=== PATIENT | male | born 1990 | race Caucasian/White ===

== ENCOUNTER 2021-04-04 16:13 | Emergency (ER) | payer OTHER, SELFPAY ==
[2021-04-04 16:21] VITALS: BP 124/87; PULSE 90; RESP 16; TEMP 36.5; O2SAT 99
--- NOTE | 2021-04-04 16:37 | ED.GENADUL_ITS ---
Discharge Plan Disposition Patient Disposition: HOME Condition: Stable Discharge Details Clinical Impression: Laceration of left thumb Primary Care Provider: None,None ED Provider: Cindy Parker Home Meds and New Rx's Prescriptions: No Action No Known Home Meds RF: 0 Discharge Instructions Instructions: Laceration (ED) Additional Instructions: Keep wound clean and dry. Cover wound with bandage if risk of contamination. Otherwise you can keep the wound open to air if resting at home to allow edges to dry and heal. You can you can apply topical antibiotic ointment if you notice any redness, pain or swelling, otherwise keep the area dry and clean. Return to the emergency department in 7 days for suture removal. Discharge Data Discharge Date/Time-TO BE ENTERED AT DEPARTURE: 04/04/21 17:54 Discharge Physician: Cindy Parker Medical Decision Making 30-year-old male presents with left thumb laceration sustained while cutting asparagus with a knife at home prior to arrival. He was given Boostrix here. Finger was irrigated with saline and Betadine. There is a 1 cm flap laceration on the distal tip of thumb. Bleeding eventually controlled. Neurovascular intact. Wound closed with 3 nylon 5-0 sutures. As this is a clean wound, and patient has no other risk factors, do not feel indication for oral antibiotics. Bacitracin and tube gauze applied. Patient advised on the importance of proper wound care and to use topical antibiotic ointment if needed. Advised to return here in 7 days for suture removal. Usual and customary return precautions given prior to discharge. HPI General Mode of arrival: ambulatory . Date/Time Provider Initiated Documentation: 04/04/21 16:30 . Limitations to Documentation: no limitations . Information obtained by: patient . HPI Narrative: Patient is a 30-year-old male presents with left thumb laceration sustained while cutting asparagus at home. He is unsure of his tetanus status. He does not a primary care doctor. Related Data Home Medications Medication Instructions Recorded Confirmed Unknown [No Known Home Meds] 01/11/18 04/04/21 Allergies Allergy/AdvReac Type Severity Reaction Status Date / Time tomato Allergy Severe Anaphylaxsi Unverified 04/04/21 16:24 s General Stated Complaint: Laceration SWATHI: 4 Review of Systems All systems reviewed & are unremarkable except as noted in HPI and below [facility] Medical History (Updated 04/04/21 @ 17:44 by Cindy Parker DO) No significant past medical history Surgical History (Updated 04/04/21 @ 17:29 by Cindy Parker DO) History of tooth extraction Social History Smoking/Tobacco Use Status: Former Tobacco Use Smoking risk assessment performed?: Yes Drug use: Never Do you feel safe in your relationship?: Yes Exam Const General: cooperative, healthy appearing and no acute distress HENMT Head: normal to inspection Mouth: oral mucosae normal Eyes General: appearance normal, both eyes and all related structures Neck Neck: normal visual inspection Resp Effort & Inspection: normal respiratory effort and able to speak in complete sentences Cardio Rate: regular rate Skin General skin exam: no rashes or lesions noted Neuro General: patient alert, patient awake and patient oriented x3 Motor: muscle tone normal throughout Extrem Hand/finger images: 1. 1 cm C-shaped flap laceration noted to the distal tip of the left thumb. Bleeding initially oozing with small laceration noted just below end of nail. Nail appears intact and attached to base. Other: Normal capillary refill. Motor/sensory grossly intact. Psych Appearance: grossly normal Affect: normal affect Course Vital Signs Vital signs: Vital Signs Temperature 97.7 F 04/04/21 16:21 Pulse 90 04/04/21 16:21 Respiratory Rate 16 04/04/21 16:21 Blood Pressure 124/87 04/04/21 16:21 Pulse Oximetry 99 04/04/21 16:21 Temperature 97.7 F 04/04/21 16:21 Temperature Source Skin 04/04/21 16:21 Pulse 90 04/04/21 16:21 Respiratory Rate 16 04/04/21 16:21 Respiratory Effort Non-Labored 04/04/21 16:21 Blood Pressure 124/87 04/04/21 16:21 Blood Pressure Position Sitting 04/04/21 16:21 Pulse Oximetry 99 04/04/21 16:21 Oxygen Delivery Method Room Air 04/04/21 16:21 Oxygen Flow Rate 0 04/04/21 16:21 Pain Level 6 04/04/21 16:24 Procedures Laceration Laceration 1: Site: hand (thumb) Side (If applicable): left Size (cm): 1 Description: flap Depth: simple, single layer Local Anesthetic: Lidocaine 1% Amount of anesthesia used (mL): 5 Pre-repair: wound explored, irrigated extensively and deep structures intact Skin layer closed with: nylon Size (cm): 5-0 Number of sutures: 3 Technique: simple, interrupted
[2021-04-04] MEDS: Phenylephrine SPRAY 1% 15 ML BTL (17:11)
[2021-04-04] MEDS: Gelatin SPONGE 12-7 MM PKT 1 EACH TP (17:11)
== END 2021-04-04 17:54 | disposition home or self-care (01) ==
PROVIDERS: Emergency Provider Physician Assistant
DX: S61.112A Laceration without foreign body of left thumb with damage to nail, initial encounter (principal); W26.0XXA Contact with knife, initial encounter; Y93.G1 Activity, food preparation and clean up
CPT/HCPCS: 12001; 90471

== ENCOUNTER 2021-05-07 19:00 | Outpatient (REF) | payer OTHER, SELFPAY ==
[2021-05-07 20:02] LABS: HCT 42.4 % (40.0-50.0); HGB 14.2 g/dL (13.5-17.5); MCH 28.3 pg (27.0-33.0); MCHC 33.5 % (32.0-36.0); MCV 84.6 fL (80-95); MPV 11.9 fL (8.0-11.0); Platelet Count 239 10^3/uL (130-400); RBC 5.01 10^6/uL (4.36-5.78); RDW 12.3 % (11.8-14.1); RDW-SD 37.6 fL; WBC 10.62 10^3/uL (4.4-10.8)
[2021-05-07 20:23] LABS: ALT 35 U/L (16-63); AST 17 U/L (15-37); Albumin 4.1 g/dL (3.4-5.0); Alkaline Phosphatase 97 U/L (46-116); Anion Gap 9.5 mmol/L (3-11); BUN 18 mg/dL (7-18); Bilirubin, Total 0.7 mg/dL (0.2-1.0); CO2 27.5 mmol/L (21.0-32.0); CREATININE 1.1 mg/dL (0.70-1.30); Calcium 8.9 mg/dL (8.5-10.1); Calculated LDL 44 mg/dL (<100); Chloride 102 mmol/L (98-107); Cholesterol 127 mg/dL (<200); Glucose 99 mg/dL (74-106); HDL Cholesterol 31 mg/dL (40-60); Potassium 4.5 mmol/L (3.5-5.1); Sodium 139 mmol/L (136-145); Total Protein 7.4 g/dL (6.4-8.2); Triglyceride 264 mg/dL (<150)
== END 2021-05-07 19:01 | disposition home or self-care (01) ==
LOC: NCHCN 19:00
PROVIDERS: Visit Provider Nurse Practitioner Family
DX: Z00.00 Encounter for general adult medical examination without abnormal findings (principal); R03.0 Elevated blood-pressure reading, without diagnosis of hypertension; F17.220 Nicotine dependence, chewing tobacco, uncomplicated; Z13.220 Encounter for screening for lipoid disorders
CPT/HCPCS: 80053; 80061; 85027

== ENCOUNTER 2021-09-02 04:26 | Emergency (ER) | payer SELFPAY ==
[2021-09-02 04:30] VITALS: BP 129/73; PULSE 106; RESP 18; O2SAT 96
[2021-09-02 04:54] LABS: Abs Immature Grans 0.05 10^3/uL (0.0-0.06); Absolute Basophil Count 0.09 10^3/uL (0.0-0.2); Absolute Eosinophil Count 0.04 10^3/uL (0.0-0.7); Absolute Lymphocyte Count 4.46 10^3/uL (1.2-3.4); Absolute Monocyte Count 1.06 10^3/uL (0.1-0.8); Absolute Neutrophil Count 9.23 10^3/uL (1.2-6.7); Basophils % 0.6; Eosinophils % 0.3; HGB 15.5 g/dL (13.5-17.5); Immature Grans % 0.3; Lymphocytes % 29.9; MCH 28.1 pg (27.0-33.0); MCHC 34.4 % (32.0-36.0); MCV 81.7 fL (80-95); MPV 11.5 fL (8.0-11.0); Monocytes % 7.1; Neutrophils % 61.8; Nucleated RBC 0 %; Platelet Count 294 10^3/uL (130-400); RBC 5.51 10^6/uL (4.36-5.78); RDW 12.2 % (11.8-14.1); RDW-SD 36.5 fL; WBC 14.93 10^3/uL (4.4-10.8)
--- NOTE | 2021-09-02 04:59 | W.ED.GENAD ---
Discharge Plan Disposition Patient Disposition: HOME Condition: Improving Discharge Details Clinical Impression: Major depression, Alcohol intoxication Primary Care Provider: Unknown,Unknown ED Provider: Cindy Parker Home Meds and New Rx's Prescriptions: No Action No Known Home Meds RF: 0 Discharge Instructions Instructions: Depression (ED), Alcohol Intoxication (ED) Additional Instructions: You have agreed to of plan of safety and a plan of care in the outpatient setting. You will receive a phone call from the production staff worker tomorrow regarding timing of your outpatient follow-up. You were evaluated by the on-call [facility] psychiatrist today and were observed in the ER over approximately 15 hours. Return to ER for any acute change to mood or any other acute concerns. Please avoid further use of alcohol. Discharge Data Discharge Date/Time-TO BE ENTERED AT DEPARTURE: 09/02/21 21:00 Discharge Physician: Cindy Parker Medical Decision Making <Jose David Ochoa MD - Last Filed: 09/02/21 05:54> Patient brought in for emergency evaluation. He is angry but cooperative. He did consent to blood draw. He does admit to being intoxicated. He denies SI or HI. He has no recollection of the event that led to his being brought here. Patient insisting that he wants to leave. Alcohol level is 180. I do believe that he is not suicidal or homicidal. However, I also believe he lacks capacity to make rational decisions at this point in time due to his intoxication. I have convinced him to remain here voluntarily to be reevaluated by [facility] when sober in the morning. I have held off filing emergency certification papers due to his denial of SI/HI, alcohol intoxication, no recollection of his actions for tonight due to his intoxication with the assumption that he will be deemed safe and not a threat once sober. Lab Data Lab results reviewed: Yes I reviewed the patient's lab results. <Gilmar Ramírez MD - Last Filed: 09/02/21 19:30> Patient signout received from Dr. Ochoa on the patient. As of 11 AM he slept through the patternmaker apprentice wood hours, awoke and now is clinically sober, interactive with staff, stating I got really drunk last night and states he does not remember threatening suicide. He states he has no thoughts of harming herself or or others at this time. Patient seen by [facility] via telemedicine. Has history of previous suicide attempts, and report of last night suicidal gesture occurred in front of his 8yo child. This was placing a loaded gun in his mouth and threatening to pull the trigger, requiring bystanders to restrain him for 1 hour and by report had to wrestle the gun away from the patient. His reported to [facility] that the patient had threatened to kill himself by driving off a bridge and has had repeated reports of depression and thoughts of suicide. Given the ongoing threats of self-harm I do feel the patient is a danger to himself. I have requested a second certification by psychiatry. The patient was interviewed by Dr. Hernandez, who also obtained collateral history from both the production staff worker as well as the patient's . She feel he does not meet criteria for emergency evaluation, and may be discharged to home with a plan for outpatient follow-up to be arranged by [facility] services. The consultation is being finalized, the patient will be signed out to Dr. Parker pending receipt of final paperwork faxed from the [facility] psychiatry team. Lab Data Lab results reviewed: Yes I reviewed the patient's lab results. Labs: Laboratory Tests Range/Units 09/02/21 09/02/21 09/02/21 04:50 04:50 04:50 WBC (4.4-10.8) 10^3/uL 14.93 H RBC (4.36-5.78) 10^6/uL 5.51 Hgb (13.5-17.5) g/dL 15.5 Hct (40.0-50.0) % 45.0 MCV (80-95) fL 81.7 MCH (27.0-33.0) pg 28.1 MCHC (32.0-36.0) % 34.4 RDW (11.8-14.1) % 12.2 Plt Count (130-400) 10^3/uL 294 MPV (8.0-11.0) fL 11.5 H Immature Gran % 0.3 Neutrophils % 61.8 Lymphocytes % 29.9 Monocytes % 7.1 Eosinophils % 0.3 Basophils % 0.6 Nucleated RBC % % 0 Absolute Neutrophils (1.2-6.7) 10^3/uL 9.23 H Absolute Lymphocytes (1.2-3.4) 10^3/uL 4.46 H Absolute Monocytes (0.1-0.8) 10^3/uL 1.06 H Absolute Eosinophils (0.0-0.7) 10^3/uL 0.04 Absolute Basophils (0.0-0.2) 10^3/uL 0.09 Sodium (136-145) mmol/L 140 Potassium (3.5-5.1) mmol/L 3.9 Chloride (98-107) mmol/L 102 Carbon Dioxide (21.0-32.0) mmol/L 22.7 Anion Gap (3-11) mmol/L 15.3 H BUN (7-18) mg/dL 13 Creatinine (0.70-1.30) mg/dL 1.3 Estimated GFR/1.73 m2 (mL/min/1.73m2) >= 60.00 Glucose (74-106) mg/dL 110 H Calcium (8.5-10.1) mg/dL 8.9 Total Bilirubin (0.2-1.0) mg/dL 0.7 AST (15-37) U/L 40 H ALT (16-63) U/L 59 Alkaline Phosphatase (46-116) U/L 108 Total Protein (6.4-8.2) g/dL 8.5 H Albumin (3.4-5.0) g/dL 4.6 Salicylates (<2.8) mg/dL < 2.8 Acetaminophen (10-30) ug/mL < 2 Ethyl Alcohol (<3) mg/dL 181.6 H COVID-19 Source SARS-CoV-2 (PCR) (Negative) Range/Units 09/02/21 13:40 WBC (4.4-10.8) 10^3/uL RBC (4.36-5.78) 10^6/uL Hgb (13.5-17.5) g/dL Hct (40.0-50.0) % MCV (80-95) fL MCH (27.0-33.0) pg MCHC (32.0-36.0) % RDW (11.8-14.1) % Plt Count (130-400) 10^3/uL MPV (8.0-11.0) fL Immature Gran % Neutrophils % Lymphocytes % Monocytes % Eosinophils % Basophils % Nucleated RBC % % Absolute Neutrophils (1.2-6.7) 10^3/uL Absolute Lymphocytes (1.2-3.4) 10^3/uL Absolute Monocytes (0.1-0.8) 10^3/uL Absolute Eosinophils (0.0-0.7) 10^3/uL Absolute Basophils (0.0-0.2) 10^3/uL Sodium (136-145) mmol/L Potassium (3.5-5.1) mmol/L Chloride (98-107) mmol/L Carbon Dioxide (21.0-32.0) mmol/L Anion Gap (3-11) mmol/L BUN (7-18) mg/dL Creatinine (0.70-1.30) mg/dL Estimated GFR/1.73 m2 (mL/min/1.73m2) Glucose (74-106) mg/dL Calcium (8.5-10.1) mg/dL Total Bilirubin (0.2-1.0) mg/dL AST (15-37) U/L ALT (16-63) U/L Alkaline Phosphatase (46-116) U/L Total Protein (6.4-8.2) g/dL Albumin (3.4-5.0) g/dL Salicylates (<2.8) mg/dL Acetaminophen (10-30) ug/mL Ethyl Alcohol (<3) mg/dL COVID-19 Source Nasal/Nares SARS-CoV-2 (PCR) (Negative) Negative <Cindy Parker DO - Last Filed: 09/03/21 01:50> 2000 --please see previous provider's notes for initial presentation, exam, course and plan. [facility] psychiatrist Dr. eHrnandez evaluated patient for second certificate through telemedicine visit and cleared him for discharge to home. Case endorsed pending receipt of her final paperwork. 2030 -- Dr. Hernandez's note received through fax confirming plan for discharge. Her notes indicate that she spoke with patient's Kelly who has taken the guns out of the home and feels comfortable with plan for discharge to home. Safety plan formulated. Discussed with patient at bedside. He feels comfortable with plan for discharge home. Also discussed with patient's Kelly and she feels comfortable with plan for home. Kelly will metal pickling equipment operator patient. [facility] human services will follow up with patient tomorrow. Usual and customary return precautions given prior to discharge. Medical Records Medical records reviewed: Yes I reviewed the patient's medical records. HPI <Jose David Ochoa MD - Last Filed: 09/02/21 05:54> General Mode of arrival: ambulatory. Date/Time Provider Initiated Documentation: 09/02/21 04:32. Limitations to Documentation: no limitations. Information obtained by: patient, police and RN notes reviewed. HPI Narrative: Patient brought in by police for emergency evaluation per warrant issued by courts at request of [facility]. Per paper work patient had been drinking most of the evening. He placed a loaded shotgun in his mouth. Friends had to struggle with him to take a gun away. Guns were then removed from the residence by friends. called 911 and police stayed on scene at house until warrant issued by reservations and ticketing agent. Patient arrives here admitting to drinking this evening. Has no recollection of the event described. States he woke up to go to the bathroom and the police were there. Patient denies SI or HI currently. Denies any physical complaints. Is not a daily drinker but has been drinking tonight at the [employer] party they were hosting. Is angry and upset but is cooperative with us. Related Data Home Medications Medication Instructions Recorded Confirmed Unknown [No Known Home Meds] 06/05/21 09/02/21 Allergies Allergy/AdvReac Type Severity Reaction Status Date / Time tomato Allergy Severe Anaphylaxsi Unverified 04/04/21 16:24 s General SWATHI: 4 Review of Systems <Jose David Ochoa MD - Last Filed: 09/02/21 05:54> Narrative: As documented in HPI otherwise negative as below. Const: no fever, chills, weakness Resp: no cough, SOB, pleuritic pain CV: no CP, diaphoresis, edema, syncope GI: no abdominal pain, nausea, vomiting, diarrhea Neuro: no headache, numbness, focal weakness, confusion PFSH <Jose David Ochoa MD - Last Filed: 09/02/21 05:54> Medical History Elevated blood pressure reading in office without diagnosis of hypertension No significant past medical history Tobacco chew use Surgical History History of tooth extraction Social History Smoking/Tobacco Use Status: Current every day Tobacco Type: cigarettes Smoking risk assessment performed?: Yes Alcohol Intake: current Alcohol Intake frequency: a few times a month Drug use: Never Substance use type: does not use Do you feel safe at home: Yes Do you feel safe in your relationship?: Yes Exam <Jose David Ochoa MD - Last Filed: 09/02/21 05:54> Narrative Exam Narrative: Const: WDWN male in NAD. HEENT: NC/AT. Normal facial exam. Neck: Supple. Trachea midline. Lungs: Normal respiratory effort. Cor: RRR. Good radial pulses. Neuro: A+O x 3. Normal speech, mentation, gait. Cranial nerves II - XII grossly intact. No gross motor or sensory deficit. Ext: No C/C/E. Skin: Warm and dry without rash. Psych: Angry but cooperative, irritable. Denies SI or HI. Course <Jose David Ochoa MD - Last Filed: 09/02/21 05:54> Lab/Test Results Lab/Test Results: Laboratory Tests Range/Units 09/02/21 04:50 WBC (4.4-10.8) 10^3/uL 14.93 H RBC (4.36-5.78) 10^6/uL 5.51 Hgb (13.5-17.5) g/dL 15.5 Hct (40.0-50.0) % 45.0 MCV (80-95) fL 81.7 MCH (27.0-33.0) pg 28.1 MCHC (32.0-36.0) % 34.4 RDW (11.8-14.1) % 12.2 Plt Count (130-400) 10^3/uL 294 MPV (8.0-11.0) fL 11.5 H Immature Gran % 0.3 Neutrophils % 61.8 Lymphocytes % 29.9 Monocytes % 7.1 Eosinophils % 0.3 Basophils % 0.6 Nucleated RBC % % 0 Absolute Neutrophils (1.2-6.7) 10^3/uL 9.23 H Absolute Lymphocytes (1.2-3.4) 10^3/uL 4.46 H Absolute Monocytes (0.1-0.8) 10^3/uL 1.06 H Absolute Eosinophils (0.0-0.7) 10^3/uL 0.04 Absolute Basophils (0.0-0.2) 10^3/uL 0.09 Sign Out <Jose David Ochoa MD - Last Filed: 09/02/21 05:54> Sign Out Data: Sign Out Comment: pending sober mental health eval Last updated by Jose David Ochoa MD at 09/02/21 07:57 Sign Out Comment: Awaiting final psychiatry paperwork, anticipate DC Last updated by Gilmar Ramírez MD at 09/02/21 19:47
[2021-09-02 05:08] LABS: ALT 59 U/L (16-63); AST 40 U/L (15-37); Albumin 4.6 g/dL (3.4-5.0); Alkaline Phosphatase 108 U/L (46-116); Anion Gap 15.3 mmol/L (3-11); BUN 13 mg/dL (7-18); Bilirubin, Total 0.7 mg/dL (0.2-1.0); CO2 22.7 mmol/L (21.0-32.0); CREATININE 1.3 mg/dL (0.70-1.30); Calcium 8.9 mg/dL (8.5-10.1); Chloride 102 mmol/L (98-107); ETHANOL BLOOD 181.6 mg/dL (<3); Glucose 110 mg/dL (74-106); Potassium 3.9 mmol/L (3.5-5.1); Sodium 140 mmol/L (136-145); Total Protein 8.5 g/dL (6.4-8.2)
[2021-09-02 05:12] LABS: Acetaminophen < 2 ug/mL (10-30); Salicylate < 2.8 mg/dL (<2.8)
[2021-09-02] MEDS: Nicotine 21 MG/24 HR PATCH TD (11:15)
--- NOTE | 2021-09-02 12:25 | NUR.NOTE ---
Nursing Note: Spoke with Nicole from Mental Health, Patient is allowed to talk to his on the phone as long as he remains calm. If patient displays increased aggitation/anger patient will lose the privilege. is Kelly [phone]. Nicole will be calling back to speak with the patient to inform him that he will not be released today as this is not the first time he has held a gun to his head and threatened to kill himself.
[2021-09-02 13:42] LABS: Source Nasal/Nares
--- NOTE | 2021-09-02 14:15 | NUR.NOTE ---
Nursing Note: Faxed to [facility] the EE paperwork, 2nd cert, and warrant. Katty Wetzel P [phone] F [phone]
[2021-09-02 15:00] LABS: COVID-19 PCR Negative (Negative)
--- NOTE | 2021-09-02 17:00 | PDOC.CMSAFED ---
- If Service Date Differs Date of service: 09/02/21 Time of Service: 17:00 Care Management Safety Plan Status: Involuntary - Reason for Wait Reason for Wait: Inpatient Admission INVOLUNTARY FOR INPATIENT PSYCHIATRIC STABILIZATION. Jose Luis presented to the ED by police escort, after his reportedly told the police that he had been drinking alcohol and put a loaded gun in his mouth in front of their 8yo child. Per report, this is not the first time he has done this. A warrant was issued and he was brought in, where he was observed until he was no longer intoxicated. Per report, he has been angry, but cooperative. His has been identified as a support. A second certification will happen this evening to determine if he will continue to be held for inpatient psychiatric stabilization. He does not report SI/HI at this time. His reports several past threats of suicide and his struggle with depression. Safety plan has been established to meet the needs of the patient, and consideration of the care team, to adhere to patient goals, identify restrictions based on behavioral status, address nutrition, and determine allowed personal belongings, tools for hygiene and personal care. Determine level of activity including ambulation, level of supervision, visitors, and determine privileges based on behaviors and level of engagement by pt. SAFETY PLAN: 1. Will remain on SI/HI precautions. In Paper Clothes 2. Will remain in room under direct supervision of one-on-one staff at all times provided by [employer]; JON, ROLLWAY WORKER oracle forms developer. 3. May have paper cups, plates, finger foods as well as a cardboard spoon 4. Follow [facility] Management of the Admitted Behavioral Health Patient policy. 5. Comfort bath system or shower, at RN discretion. 6. Personal belongings at RN discretion, although no personal cell phone use. 7. Visitors: No visitors at this time. 8. Activities: soft cart items, music tablet, TV, if available, at RN discretion. 9. Bathroom privileges with supervision while in ED. Without limit on M/S. 10. Phone: He may have ingoing/outgoing calls with his , [facility], and legal [employer]. 11. Due to INVOLUNTARY status, patient is being held at [facility] by the Department of Mental Health ([facility]) until 2nd certification by [facility] Psychiatrist can be performed (within 24 hours). Staff will provide de-escalation support (CPI) as needed. If patient wishes to leave [facility], staff will contact [facility] Crisis Screener ([phone]) as soon as possible. In the event of elopement, notify [facility] Police ([phone]). Patient is currently involuntarily at [facility]. [facility] Frontline Reporting Analyst will continue seeking placement. Please contact the Electric Meter Technician Review Specialist ([phone]) for any needed changes to Safety Plan, during business hours. Safety plan has been provided to interdepartmental care team. Patient will be transported by spindle plumber at time of discharge.
[2021-09-02 20:56] VITALS: BP 138/95; PULSE 98; RESP 20; TEMP 36.8; O2SAT 98
--- NOTE | 2021-09-02 20:57 | NUR.NOTE ---
Nursing Note: Spoke with Dr. Parker regarding patients urine collection and that we have not obtained. Approved to discontinue order.
== END 2021-09-02 21:00 | disposition home or self-care (01) ==
PROVIDERS: Emergency Medicine; Emergency Provider Physician Assistant
DX: F10.120 Alcohol abuse with intoxication, uncomplicated (principal); Y90.6 Blood alcohol level of 120-199 mg/100 ml; F32.9 Major depressive disorder, single episode, unspecified; Z91.51 Personal history of suicidal behavior; Z20.822 Contact with and (suspected) exposure to COVID-19; Z03.818 Encounter for observation for suspected exposure to other biological agents ruled out
CPT/HCPCS: 36415; 80053; 80307; 87635; 99285; 80320; 80329; 85025; 99284

== ENCOUNTER 2022-03-31 00:31 | Observation (INO) | payer BC, SELFPAY ==
--- NOTE | 2022-03-31 00:15 | RT.EKG_ITS ---
APPROVED REPORT Exam: Resting ECG Reason for Exam: syncope Patient Location: E HR:92 bpm ECG Measurements Heart Rate 92 AXIS PA 146 P 77 QRSd 91 QRS 12 QT 374 T 29 QTc 463 Conclusion Sinus rhythm...normal P axis, V-rate 60- 99
[2022-03-31 00:46] VITALS: BP 134/79; PULSE 91; RESP 16; TEMP 37; O2SAT 99
--- NOTE | 2022-03-31 01:04 | ED.GENADUL_ITS ---
Discharge Plan Disposition Patient Disposition: [facility] INPATIENT Condition: Stable Discharge Details Clinical Impression: Depression, Pre-syncope Primary Care Provider: Unknown,Unknown ED Provider: Cindy Parker Home Meds and New Rx's Prescriptions: No Action escitalopram oxalate 10 mg tablet Medical Decision Making <Denton Garcia MD - Last Filed: 03/31/22 06:23> 31 yo male with hx of depression comes in with ems after an episode where he felt like he was going to pass out. HE apparently was at the police station and was there because he had been telling people goodbye, and when asked about this he states it was because he was going to leave the state not harm himself.He was there and felt lightheaded and sat down. He did not have loc. He denies chest pain, dyspnea, fevers, chills. HE arrives stating he feels well without symptoms, denies chest pain, weakness, headache, n/v. Mental health was evaluating him at PD for his statement and state he was making vague statement such as due us partto family members. He is currently clinically sober, caox4 and denies si/hi on my exam. I suspect his episode of lightheadedness was vasovagal but will obtain ecg and troponin to evaluate for possible acs, evaluate for anemia and electrolyte abnormality. He is well low and perc negative so doubt PE. Will also place cpso order and consult mental health if workup unremarkable. ecg and labs unremarkable, patient stable. Given his vague statements earlier will have mental health evaluate mental health evaulated and he is willing to be voluntary for psych placement for depression/si. He did request something for feeling anxious and was given oral ativan with good improvement. Differential Diagnosis Differential Diagnosis: depression, vasovagal, orthoastasis Medical Records Medical records reviewed: Yes I reviewed the patient's medical records. Lab Data Lab results reviewed: Yes I reviewed the patient's lab results. ECG Data Attestation: I personally reviewed and interpreted this ECG (s) as follows: Prior ECG tracings: not available for review Interpretation: sinus rhythm, rate of 92, pr 146, no acute st t wave ischemic findings <Cindy Parker DO - Last Filed: 03/31/22 16:06> 03/31/22 Dr Garcia 31 yo male with hx of depression comes in with ems after an episode where he felt like he was going to pass out. HE apparently was at the police station and was there because he had been telling people goodbye, and when asked about this he states it was because he was going to leave the state not harm himself.He was there and felt lightheaded and sat down. He did not have loc. He denies chest pain, dyspnea, fevers, chills. HE arrives stating he feels well without symptoms, denies chest pain, weakness, headache, n/v. Mental health was evaluating him at PD for his statement and state he was making vague statement such as due us partto family members. He is currently clinically sober, caox4 and denies si/hi on my exam. I suspect his episode of lightheadedness was vasovagal but will obtain ecg and troponin to evaluate for possible acs, evaluate for anemia and electrolyte abnormality. He is well low and perc negative so doubt PE. Will also place cpso order and consult mental health if workup unremarkable. ecg and labs unremarkable, patient stable. Given his vague statements earlier will have mental health evaluate mental health evaulated and he is willing to be voluntary for psych placement for depression/si. He did request something for feeling anxious and was given oral ativan with good improvement. 03/31/22 Dr. Parker 0800 --please see Dr. Garcia's note for initial presentation, exam and plan. Case endorsed to follow-up with mental health this morning. 1230 --no acute events, patient has been sleeping most of the morning. Patient evaluated by mental health and he remains voluntary with plan for seeking placement. 1430 --patient has remained cooperative. Discussed with nursing supervisor bleach plant and patient can be transferred upstairs while awaiting placement. Case discussed with hospitalist who accepts patient for admission. Lab Data Labs: Laboratory Tests Range/Units 03/31/22 03/31/22 03/31/22 01:26 01:26 01:26 WBC (4.4-10.8) 10^3/uL 10.89 H RBC (4.36-5.78) 10^6/uL 5.31 Hgb (13.5-17.5) g/dL 15.2 Hct (40.0-50.0) % 44.5 MCV (80-95) fL 84 MCH (27.0-33.0) pg 28.6 MCHC (32.0-36.0) % 34.2 RDW (11.8-14.1) % 13.0 Plt Count (130-400) 10^3/uL 159 MPV (8.0-11.0) fL 12.1 H Immature Gran % 0.5 Neutrophils % 82.9 Lymphocytes % 10.8 Monocytes % 5.1 Eosinophils % 0.3 Basophils % 0.4 Nucleated RBC % (0.0-0.3) % 0.0 Absolute Neutrophils (1.2-6.7) 10^3/uL 9.03 H Absolute Lymphocytes (1.2-3.4) 10^3/uL 1.18 L Absolute Monocytes (0.1-0.8) 10^3/uL 0.56 Absolute Eosinophils (0.0-0.7) 10^3/uL 0.03 Absolute Basophils (0.0-0.2) 10^3/uL 0.04 Sodium (136-145) mmol/L 139 Potassium (3.5-5.1) mmol/L 3.4 L Chloride (98-107) mmol/L 102 Carbon Dioxide (21.0-32.0) mmol/L 25.8 Anion Gap (3-11) mmol/L 11.2 H BUN (7-18) mg/dL 6 L Creatinine (0.70-1.30) mg/dL 1.0 Estimated GFR/1.73 m2 (mL/min/1.73m2) >= 60.00 Glucose (74-106) mg/dL 106 Calcium (8.5-10.1) mg/dL 8.2 L Total Bilirubin (0.2-1.0) mg/dL 0.5 AST (15-37) U/L 21 ALT (16-63) U/L 35 Alkaline Phosphatase (46-116) U/L 92 Troponin I (<or=60) ng/L < 50 Total Protein (6.4-8.2) g/dL 7.3 Albumin (3.4-5.0) g/dL 3.8 TSH (0.36-3.74) uIU/mL Salicylates (<2.8) mg/dL Acetaminophen (10-30) ug/mL Ethyl Alcohol (<10) mg/dL 79.4 H COVID-19 Source SARS-CoV-2 (PCR) (Negative) Range/Units 03/31/22 03/31/22 03/31/22 01:26 01:26 03:40 WBC (4.4-10.8) 10^3/uL RBC (4.36-5.78) 10^6/uL Hgb (13.5-17.5) g/dL Hct (40.0-50.0) % MCV (80-95) fL MCH (27.0-33.0) pg MCHC (32.0-36.0) % RDW (11.8-14.1) % Plt Count (130-400) 10^3/uL MPV (8.0-11.0) fL Immature Gran % Neutrophils % Lymphocytes % Monocytes % Eosinophils % Basophils % Nucleated RBC % (0.0-0.3) % Absolute Neutrophils (1.2-6.7) 10^3/uL Absolute Lymphocytes (1.2-3.4) 10^3/uL Absolute Monocytes (0.1-0.8) 10^3/uL Absolute Eosinophils (0.0-0.7) 10^3/uL Absolute Basophils (0.0-0.2) 10^3/uL Sodium (136-145) mmol/L Potassium (3.5-5.1) mmol/L Chloride (98-107) mmol/L Carbon Dioxide (21.0-32.0) mmol/L Anion Gap (3-11) mmol/L BUN (7-18) mg/dL Creatinine (0.70-1.30) mg/dL Estimated GFR/1.73 m2 (mL/min/1.73m2) Glucose (74-106) mg/dL Calcium (8.5-10.1) mg/dL Total Bilirubin (0.2-1.0) mg/dL AST (15-37) U/L ALT (16-63) U/L Alkaline Phosphatase (46-116) U/L Troponin I (<or=60) ng/L Total Protein (6.4-8.2) g/dL Albumin (3.4-5.0) g/dL TSH (0.36-3.74) uIU/mL 1.22 Salicylates (<2.8) mg/dL 4.3 Acetaminophen (10-30) ug/mL < 2 Ethyl Alcohol (<10) mg/dL COVID-19 Source Nasal/Nares SARS-CoV-2 (PCR) (Negative) Negative HPI <Denton Garcia MD - Last Filed: 03/31/22 06:23> General Mode of arrival: EMS . Date/Time Provider Initiated Documentation: 03/31/22 00:53 . Limitations to Documentation: no limitations . Information obtained by: patient . History of Present Illness 31 year old M presents to the emergency department with the chief complaint of ifeoma syncope, described as moderate, Patient started experiencing this hour(s) (2) and it has been now resolved. No relieving factors improve symptom(s), No exacerbating factors reported . Related Data Home Medications Medication Instructions Recorded Confirmed escitalopram oxalate 10 mg tablet 10 tab PO DAILY 03/31/22 03/31/22 Allergies Allergy/AdvReac Type Severity Reaction Status Date / Time tomato Allergy Severe Anaphylaxsi Unverified 03/31/22 00:54 s General Stated Complaint: PsychEval SWATHI: 2 Review of Systems <Denton Garcia MD - Last Filed: 03/31/22 06:23> All systems reviewed & are unremarkable except as noted in HPI and below Constitutional Constitutional: Denies chills and Denies fever(s) Eyes Eyes: Denies loss of vision ENT Ears, Nose, Mouth, and Throat: Denies change in voice Cardiovascular Cardiovascular: Denies dyspnea Respiratory Respiratory: Denies cough and Denies dyspnea Gastrointestinal Gastrointestinal: Denies abdominal pain, Denies nausea and Denies vomiting Integumentary/Breasts Skin/Breast: Denies rash Neurologic Neurologic: Denies loss of vision PFSH <Denton Garcia MD - Last Filed: 03/31/22 06:23> All Active Problems (Updated 03/31/22 @ 02:39 by Denton Garcia MD) Major depression (Chronic) Alcohol intoxication (Acute) Depression (Chronic) Pre-syncope (Acute) Laceration of left thumb (Acute) Medical History Elevated blood pressure reading in office without diagnosis of hypertension No significant past medical history Tobacco chew use Surgical History History of tooth extraction Social History Smoking/Tobacco Use Status: Current every day Tobacco Type: cigarettes Smoking risk assessment performed?: Yes Alcohol Intake: current Alcohol Intake frequency: a few times a month Drug use: Never Substance use type: does not use Do you feel safe at home: Yes Do you feel safe in your relationship?: Yes Exam <Denton Garcia MD - Last Filed: 03/31/22 06:23> Const General: no acute distress Orientation: alert HENSC Head: normal to inspection Ears: external ears normal General nose exam: external nose normal Mouth: moist mucous membranes Eyes General: appearance normal, both eyes and all related structures Neck Neck: normal visual inspection Resp Effort & Inspection: normal respiratory effort and able to speak in complete sentences Cardio Rate: regular rate Skin General skin exam: no rashes or lesions noted Neuro General: patient alert and patient oriented x3 Extrem General: normal to inspection Course <Denton Garcia MD - Last Filed: 03/31/22 06:23> Vital Signs Vital signs: Vital Signs Temperature 37.0 C 03/31/22 00:46 Pulse 91 H 03/31/22 00:46 Respiratory Rate 16 03/31/22 00:46 Blood Pressure 134/79 03/31/22 00:46 Pulse Oximetry 99 03/31/22 00:46 Temperature 37.0 C 03/31/22 00:46 Temperature Source Temporal Artery Scan 03/31/22 00:46 Pulse 91 H 03/31/22 00:46 Respiratory Rate 16 03/31/22 00:46 Respiratory Effort 03/31/22 00:51 Blood Pressure 134/79 03/31/22 00:46 Pulse Oximetry 99 03/31/22 00:46 Oxygen Delivery Method Room Air 03/31/22 00:46 Oxygen Flow Rate 0 03/31/22 00:46 Pain Level 0 03/31/22 00:46 Sign Out <Denton Garcia MD - Last Filed: 03/31/22 06:23> Sign Out Data: Sign Out Comment: voluntary for depression/si Last updated by Denton Garcia MD at 03/31/22 02:52 PAWSS <Denton Garcia MD - Last Filed: 03/31/22 06:23> Have you Been Recently Intoxicated or Drunk Within the Last 30 days?: No Have you Ever Experienced Previous Episodes of Alcohol Withdrawal?: No Have you ever Experienced Withdrawal Seizures?: No Have you ever Experienced Delirium Tremens(DT)s?: No Have you ever undergone Alcohol Rehabilitation Treatment (i.e, inpt ot outpatient treatment programs)?: No Have you ever Experienced Blackouts?: No Have you ever Combined Alcohol with other Downers within the last 90 days?: No Have you ever Combined Alcohol with any other Substance of Abuse during the last 90 days?: No Positive Blood Alcohol level on Presentation? [PCS.BAL]: No Evidence of Increased Autonomic Activity (i.e. HR>120, tremor, sweating, agitation, nausea)?: No Result: 0 <Cindy Parker DO - Last Filed: 03/31/22 16:06> Result: 0
--- NOTE | 2022-03-31 01:16 | NUR.NOTE ---
Nursing Note: Patient is refusing 'medical treatment, and to change into paper scrubs. Provider notified and in-room.
[2022-03-31 01:37] LABS: Abs Immature Grans 0.05 10^3/uL (0.0-0.06); Absolute Basophil Count 0.04 10^3/uL (0.0-0.2); Absolute Eosinophil Count 0.03 10^3/uL (0.0-0.7); Absolute Lymphocyte Count 1.18 10^3/uL (1.2-3.4); Absolute Monocyte Count 0.56 10^3/uL (0.1-0.8); Absolute Neutrophil Count 9.03 10^3/uL (1.2-6.7); Basophils % 0.4; Eosinophils % 0.3; HCT 44.5 % (40.0-50.0); HGB 15.2 g/dL (13.5-17.5); Immature Grans % 0.5; Lymphocytes % 10.8; MCH 28.6 pg (27.0-33.0); MCHC 34.2 % (32.0-36.0); MCV 84 fL (80-95); MPV 12.1 fL (8.0-11.0); Monocytes % 5.1; Neutrophils % 82.9; Platelet Count 159 10^3/uL (130-400); RBC 5.31 10^6/uL (4.36-5.78); RDW-SD 39.9 fL; WBC 10.89 10^3/uL (4.4-10.8)
[2022-03-31 01:45] LABS: ETHANOL BLOOD 79.4 mg/dL (<10)
[2022-03-31 01:52] LABS: ALT 35 U/L (16-63); AST 21 U/L (15-37); Albumin 3.8 g/dL (3.4-5.0); Alkaline Phosphatase 92 U/L (46-116); Anion Gap 11.2 mmol/L (3-11); BUN 6 mg/dL (7-18); Bilirubin, Total 0.5 mg/dL (0.2-1.0); CO2 25.8 mmol/L (21.0-32.0); Calcium 8.2 mg/dL (8.5-10.1); Chloride 102 mmol/L (98-107); Glucose 106 mg/dL (74-106); Potassium 3.4 mmol/L (3.5-5.1); Sodium 139 mmol/L (136-145); Total Protein 7.3 g/dL (6.4-8.2); Troponin I < 50 ng/L (<or=60)
[2022-03-31 02:07] LABS: Salicylate 4.3 mg/dL (<2.8)
[2022-03-31 02:09] LABS: Acetaminophen < 2 ug/mL (10-30)
[2022-03-31 02:12] LABS: TSH (W/Ref FT4) 1.22 uIU/mL (0.36-3.74)
[2022-03-31 03:44] LABS: Source Nasal/Nares
[2022-03-31 04:06] VITALS: BP 118/81; PULSE 94; RESP 18; TEMP 37; O2SAT 96
[2022-03-31] MEDS: LORazepam 1 MG TAB 2 MG PO (04:19)
[2022-03-31 04:35] LABS: COVID-19 PCR Negative (Negative)
--- NOTE | 2022-03-31 15:42 | HPE_ITS ---
Date of service: 03/31/22 Time of Service: 14:53 Assessment and Plan Assessment and plan (1) Major depression: Start date: 03/31/22 Start time: 17:48 Status: Chronic Assessment and plan: pt admitted for questionable SI. He denies however note found in car by . Evaluated by . Voluntary at this time. Denies SI. States he is angry that he is here. He did not want to harm himself leave he wanted to leave and go restart his life over and f startorget his life, he wanted to go to [place], [place], or [place], where he has family. Safety plan in place, 1:1 CPSO. Started on zyprexa Ativan TID prn (2) Alcohol intoxication: Start date: 03/31/22 Start time: 16:02 Status: Acute Assessment and plan: ethyl alcohol at 79, alcohol Ativan TID prn discussed with Dr. Farrell History of Present Illness History of Present Illness Chief Complaint: volunitary, SI Narrative: 4o y.o patient with thoughts of SI initially however he denies them at this time. He has hx of major depression, ETOH. He is being admitted by for voluntary services after found suicidal note about due us part, they are currently and he is depressed. He has been for three years, worked for [employer]. He is voluntary at this time unless he tries to walk off then he will be made involuntary per . He has been asked to be admitted to m/s for placement to transition unit while awaiting placement, CM working with on placement. Review of Systems All systems reviewed & are unremarkable except as noted in HPI and below PFSH All Active Problems Major depression (Chronic) Alcohol intoxication (Acute) Depression (Chronic) Pre-syncope (Acute) Laceration of left thumb (Acute) Medical History Elevated blood pressure reading in office without diagnosis of hypertension No significant past medical history Tobacco chew use Surgical History History of tooth extraction Social History Smoking/Tobacco Use Status: Current every day Tobacco Type: cigarettes Smoking risk assessment performed?: Yes Alcohol Intake: current Alcohol Intake frequency: a few times a month Drug use: Never Substance use type: does not use Do you feel safe at home: Yes Do you feel safe in your relationship?: Yes Meds Allergies and Home Medications Allergies Allergy/AdvReac Type Severity Reaction Status Date / Time tomato Allergy Severe Anaphylaxsi Unverified 03/31/22 00:54 s Home Medications Medication Instructions Recorded Confirmed Type escitalopram oxalate 10 mg tablet tab 03/31/22 03/31/22 History Exam Const General: cooperative, comfortable and no acute distress Nutritional Appearance: obese Orientation: alert, awake and oriented x3 Eyes Eyelids: eyelids normal Pupils: PERRL EOM: EOM intact bilaterally Neck Neck: normal visual inspection and no JVD Lymphatic: no lymphadenopathy noted Resp Effort & Inspection: normal respiratory effort Auscultation: clear to auscultation bilaterally Cardio Jugular venous pressure: no JVD Rhythm: regular rhythm Heart Sounds: S1 normal GI Auscultation: normal bowel sounds General: No CVA tenderness and deferred Skin General skin exam: no rashes or lesions noted Neuro General: patient alert, patient awake and patient oriented x3 Cognition: normal cognition Speech: speech normal Gait: normal gait Extrem General: normal to inspection, full ROM and no clubbing, cyanosis or edema Psych Appearance: disheveled Mental Status: mental status grossly abnormal Speech and Movement: speech and movement normal Mood: angry Affect: sad Attitude: avoids eye contact Thought Process: other Thought Content: other Insight: limited Judgment: limited Results Labs Result diagrams: 03/31/22 01:26 03/31/22 01:26 Labs: Laboratory Results - last 24 hr 03/31/22 03/31/22 03/31/22 01:26 01:26 01:26 WBC 10.89 H RBC 5.31 Hgb 15.2 Hct 44.5 MCV 84 MCH 28.6 MCHC 34.2 RDW 13.0 Plt Count 159 MPV 12.1 H Immature Gran % 0.5 Neutrophils % 82.9 Lymphocytes % 10.8 Monocytes % 5.1 Eosinophils % 0.3 Basophils % 0.4 Nucleated RBC % 0.0 Absolute Neutrophils 9.03 H Absolute Lymphocytes 1.18 L Absolute Monocytes 0.56 Absolute Eosinophils 0.03 Absolute Basophils 0.04 Sodium 139 Potassium 3.4 L Chloride 102 Carbon Dioxide 25.8 Anion Gap 11.2 H BUN 6 L Creatinine 1.0 Estimated GFR/1.73 m2 >= 60.00 Glucose 106 Calcium 8.2 L Total Bilirubin 0.5 AST 21 ALT 35 Alkaline Phosphatase 92 Troponin I < 50 Total Protein 7.3 Albumin 3.8 TSH Salicylates Acetaminophen Ethyl Alcohol 79.4 H COVID-19 Source SARS-CoV-2 (PCR) 03/31/22 03/31/22 03/31/22 01:26 01:26 03:40 WBC RBC Hgb Hct MCV MCH MCHC RDW Plt Count MPV Immature Gran % Neutrophils % Lymphocytes % Monocytes % Eosinophils % Basophils % Nucleated RBC % Absolute Neutrophils Absolute Lymphocytes Absolute Monocytes Absolute Eosinophils Absolute Basophils Sodium Potassium Chloride Carbon Dioxide Anion Gap BUN Creatinine Estimated GFR/1.73 m2 Glucose Calcium Total Bilirubin AST ALT Alkaline Phosphatase Troponin I Total Protein Albumin TSH 1.22 Salicylates 4.3 Acetaminophen < 2 Ethyl Alcohol COVID-19 Source Nasal/Nares SARS-CoV-2 (PCR) Negative Last Vital Signs Temp 37.0 C 03/31/22 04:06 Pulse 94 H 03/31/22 04:06 Resp 18 03/31/22 04:06 BP 118/81 03/31/22 04:06 Pulse Ox 96 03/31/22 04:06 PAWSS Have you Been Recently Intoxicated or Drunk Within the Last 30 days?: No Have you Ever Experienced Previous Episodes of Alcohol Withdrawal?: No Have you ever Experienced Withdrawal Seizures?: No Have you ever Experienced Delirium Tremens(DT)s?: No Have you ever undergone Alcohol Rehabilitation Treatment (i.e, inpt ot outpatient treatment programs)?: No Have you ever Experienced Blackouts?: No Have you ever Combined Alcohol with other Downers within the last 90 days?: No Have you ever Combined Alcohol with any other Substance of Abuse during the last 90 days?: No Positive Blood Alcohol level on Presentation? [PCS.BAL]: No Evidence of Increased Autonomic Activity (i.e. HR>120, tremor, sweating, agitation, nausea)?: No Result: 0
[2022-03-31 16:28] VITALS: BP 120/74; PULSE 75; RESP 14; TEMP 37.1; O2SAT 99
--- NOTE | 2022-03-31 16:33 | CMSP_ITS ---
- If Service Date Differs Date of service: 03/31/22 Time of Service: 16:33 Care Management Safety Plan Status: Voluntary - Reason for Wait Reason for Wait: Inpatient Admission VOLUNTARY FOR INPATIENT PSYCHIATRIC STABILIZATION. Patient is appropriate in all interactions since arriving at [facility]; Pt has demonstrated appropriate coping and communication skills, has articulated his or her needs and concerns and is fully engaged during staff interactions. Per report, Jose Luis has made several vague statements via text/voicemail/note that were suicidal in nature. He left a voicemail saying goodbye to his 8 year old daughter, a text to his estranged stating till do we part, and left a note in his car stating to contact his , and she can have everything. Upon arrival to the ED, he stated that his plan was simply to leave [facility]. He was assessed by NINA Colbert, who discussed options with him. She stated that she would apply for an EE if he chooses to leave. He is currently agreeable to voluntary placement. Safety plan has been established with patient, and care team, to adhere to patient goals, identify restrictions based on behavioral status, address nutrition, and determine allowed personal belongings, tools for hygiene and personal care. Determine level of activity including ambulation, level of supervision, visitors, and determine privileges based on behaviors and level of engagement by pt. SAFETY PLAN: 1. Will remain on suicide precautions. In Paper Clothes 2. Will remain in room under direct supervision of one-on-one staff at all times provided by CPSO; JON, ABALONE DIVER crop or livestock tenant farmer. 3. May have paper cups, plates, finger foods as well as a cardboard spoon with which to eat meals. 4. Follow [facility] Management of the Admitted Behavioral Health Patient policy. 5. Comfort bath system, shower permitted with escort at RN discretion. 6. No personal belongings-soft items permitted at RN discretion. 7. Visitors- at RN discretion. 8. Activities: soft cart items, TV, music tablet approved per RN discretion. He may walk around in his room/transition area with supervision of CPSO. 9. Bathroom privileges with escort in the ED, available in room without limitation on M/S. 10. Phone: incoming/outgoing calls via [facility] cordless phone at RN discretion. No cell phone permitted. 11. Due to VOLUNTARY status, if patient wishes to leave [facility], staff will contact [facility] Crisis Screener ([phone]) and On-Call Medical Data Entry Clerk ([phone]) as soon as possible. In the event of elopement, notify [facility] Police ([phone]). Patient is currently voluntarily at [facility] and seeking inpatient admission when a bed becomes available. [facility] Frontline Lime Mixer will continue seeking placement. Please contact the [employer] Medical Data Entry Clerk ([phone]) and [facility] Lime Mixer ([phone]) for any needed changes in the Safety Plan. Safety plan has been provided to interdepartmental care team.
[2022-03-31] MEDS: LORazepam 1 MG TAB PO (16:56)
[2022-03-31] MEDS: Potassium Chloride 20 MEQ TABCR 40 MEQ PO (16:57)
--- NOTE | 2022-03-31 21:25 | PDOC.MHCN ---
Date of service: 03/31/22 Time of Service: 20:25 Mental Health Crisis Note Presenting Issue How did you arrive at the ED and why did you come: Pt arrived on 03.30.2022 via [facility] after he passed out per [facility] [place] [employer] shortly after this clinician arrived to do a mental health assessment. Pt had sent text messages to his and friend making statements that he was going to end his life via suicide. Precipitating Factors Pt denied allegations of wanting to end his life by suicide even when quotes were read to him that he had sent to his and friend. Pt's father also called today with concerns and worry for his son. He is not showing any signs of delusions however, is highly manipulative. Disposition BEHAVIOR: Pt was assessed upon admission to [facility] and again at approximately 11 am after he was able to sleep. Pt continues to deny or show any remorse for his text messages. He does not engage much in the assessment. EYE CONTACT: Pt does not make eye contact on either occassion. MOOD: Pt's mood appeared angry and verbally aggressive early this am and withdrawn later during thee assessment. AFFECT: Pt has his head covered with a blanket and does not engage during the assessment which is congruent with his mood. APPETITE: Pt has to eaten anything since arriving. SLEEP(trouble falling/staying asleep: Pt did not sleep last night but did sleep most of today. Plan Pt meets criteria for hospital level of care. Should he decide to leave he would need to be reassessed by [facility]. If he leaves before being assessed this clinician is prepared to write a warrant/EE to have him brought back to [facility] for treatment and placement. Pt while on voluntary status will be assessed daily by [facility] to assess continued need for treatment. Pt is NOT under any circumstances to have his cell phone as this is how he has sent threats to his and friends. Signature Clinician's Name/Title: Sayra Li MS, [facility] Emergency Services Clinician, [facility]
[2022-03-31 22:50] VITALS: RESP 18
[2022-04-01] MEDS: OLANZapine 5 MG TAB PO (08:09)
[2022-04-01 08:27] VITALS: BP 123/87; PULSE 77; RESP 16; TEMP 36.4; O2SAT 97
--- NOTE | 2022-04-01 10:15 | DSE_ITS ---
Date of service: 04/01/22 Time of Service: 09:15 DS: Diagnosis Discharge Diagnosis (1) Major depression: Status: Chronic (2) Alcohol intoxication: Status: Acute Discharge Plan Disposition Patient Disposition: STU RETREAT Condition: Stable Discharge Details Reason For Visit: Major Depression,Suicidal Ideation Admit Date/Time: 03/31/22 14:53 Admit Provider: Jason Farrell Attending Provider: Jason Farrell Primary Care Provider: Unknown,Unknown Hospital Course Hospital Course: This is a 31 year old male with history of depression, on citalopram, who is going through marital problems at home with pending divorce who became intoxicated, reportedly not a regular drinker or drug abuser, who presented to the ED after leaving a note at the house that stated till do us part in a suicide note. He was medically screened in the ED and cleared for mental health evaluation. He agreed to voluntary inpatient admission for psychiatric treatment. No beds available so he was admitted by hospitalist services for voluntary services. While on med/surg he remained medically stable with no signs of withdrawal. He had no behavioral issues. A bed has been secured and he is being transported by [facility] department. discharge discussed with Dr Farrell. Home Meds and New Rx's Prescriptions: Continued escitalopram oxalate 10 mg tablet 10 mg PO DAILY Discharge Instructions Instructions: Depression (DC) Stand Alone Forms: Nursing Discharge Form Referrals: Unknown,Unknown [Primary Care Provider] - (pcp on discharge) Activity:: Activity as Tolerated Equipment/Supplies:: No Equipment Needed Diet:: As Tolerated Discharge Orders Discharge Orders: Discharge Order (Routine); Ordered 04/01/22 Ordered By: Kavitha Salcedo DS: Summary Time Spent with Patient providing and/or coordinating discharge services: Less than 30 minutes Status at Discharge Functional status at discharge: independent ambulation Overall status at discharge: patient is not back to baseline Mental Status: No mental status grossly normal and other (depressed) Speech and Movement: speech and movement normal Mood: other (depressed) Affect: blunted Exam Const General: cooperative, comfortable and no acute distress Orientation: alert, awake and oriented x3 Neck Neck: normal visual inspection Resp Effort & Inspection: normal respiratory effort Auscultation: clear to auscultation bilaterally Cardio Rhythm: regular rhythm GI Auscultation: normal bowel sounds Skin General skin exam: no rashes or lesions noted Neuro General: patient alert, patient awake and patient oriented x3 Cognition: normal cognition Speech: speech normal Gait: normal gait Extrem General: normal to inspection and full ROM Psych Mental Status: mental status grossly abnormal and other (depressed) Speech and Movement: speech and movement normal Mood: other (depressed) Affect: blunted Attitude: avoids eye contact Insight: limited Judgment: limited DS: Data Vitals/I&O Vitals and I&O: Vital Signs Temperature 36.4 C L 04/01/22 08:27 Temperature Source Tympanic 04/01/22 08:27 Pulse 77 04/01/22 08:27 Pulse Rhythm Regular 04/01/22 08:00 Respiratory Rate 16 04/01/22 08:27 Respiratory Effort Non-Labored 04/01/22 08:00 Respiratory Depth Normal 04/01/22 08:00 Respiratory Pattern Normal 04/01/22 08:00 Blood Pressure 123/87 04/01/22 08:27 Pulse Oximetry 97 04/01/22 08:27 Oxygen Delivery Method Room Air 04/01/22 08:27 Oxygen Flow Rate 0 04/01/22 08:27 Pain Level 0 04/01/22 08:27 Comment 03/31/22 22:50 Intake & Output 03/31/22 03/31/22 04/01/22 11:59 23:59 11:59 Weight 72.575 kg Other: Comment Per [facility] report, patient up to bathroom. PFSH All Active Problems Major depression (Chronic) Alcohol intoxication (Acute) Depression (Chronic) Pre-syncope (Acute) Laceration of left thumb (Acute) Medical History Elevated blood pressure reading in office without diagnosis of hypertension No significant past medical history Tobacco chew use Surgical History History of tooth extraction Social History Smoking/Tobacco Use Status: Current every day Tobacco Type: cigarettes Smoking risk assessment performed?: Yes Alcohol Intake: current Alcohol Intake frequency: a few times a month Drug use: Never Substance use type: does not use Do you feel safe at home: Yes Do you feel safe in your relationship?: Yes
[2022-04-01] MEDS: Escitalopram 10 MG TAB PO (12:57)
[2022-04-01 13:25] LABS: BUN 15 mg/dL (7-18); Calcium 8.7 mg/dL (8.5-10.1); Chloride 102 mmol/L (98-107); Glucose 180 mg/dL (74-106); Potassium 3.8 mmol/L (3.5-5.1); Sodium 138 mmol/L (136-145)
--- NOTE | 2022-04-01 17:31 | CMDISCH_ITS ---
- If Service Date Differs Date of service: 04/01/22 Time of Service: 17:31 Care Management Discharge Reason for Hospitalization: depression and SI Discharge Plan: Jose Luis is seeking voluntary placement at an inpatient psychiatric facility. He has been accepted for admission to [facility]. [facility] be with the [facility]'s department, coordinated by [facility]. Patient/Family Education Needs: Expectations, limitations Services Needed at Discharge: Psychiatric Facility - Disposition Disposition: [place]
== END 2022-04-01 16:05 | disposition short-term general hospital (02) ==
LOC: ER 15:21 → MS 16:13
PROVIDERS: Emergency Medicine; Nurse Practitioner Acute Care; Admitting Provider Family Medicine; Emergency Provider Physician Assistant; Visit Provider Family Medicine
DX: F32.9 Major depressive disorder, single episode, unspecified (principal); R45.851 Suicidal ideations; F10.129 Alcohol abuse with intoxication, unspecified; R55 Syncope and collapse; Z20.822 Contact with and (suspected) exposure to COVID-19; F17.210 Nicotine dependence, cigarettes, uncomplicated; Z79.899 Other long term (current) drug therapy; Y90.3 Blood alcohol level of 60-79 mg/100 ml
CPT/HCPCS: 36415; 80048; 80053; 87635; 93005; 99285; 80320; 80329; 84443; 84484; 85025; 93010; 99217; 99219; G0378